=== PATIENT | female | born 2000 | race Caucasian/White ===

== ENCOUNTER 2020-06-06 05:43 | Outpatient (CLI) | payer OTHER ==
[~2020-06-06] VITALS: Ht 160 cm; Wt 86.3 kg
[~2020-06-06 05:43] MED LIST: ACHD5005 PO; ALBU8.5H2 IH; CEPH500C PO; DOCU100C37 PO; FERR325T18 PO; HYDR-3456 PO; HYDR1TAB PO; IBUP-1773 PO; bcp
== END 2020-06-06 14:31 ==
LOC: PREOP 05:43
PROVIDERS: ATTEND Obstetrics & Gynecology
DX: Z01.818 Encounter for other preprocedural examination (principal)

== ENCOUNTER 2020-06-08 11:24 | Day surgery (SDC) | payer OTHER ==
[~2020-06-08] VITALS: Ht 160 cm; Wt 86.3 kg
[2020-06-08] VITALS (10 sets, daily range): BP systolic 93–131; BP diastolic 50–86
[2020-06-08] MEDS ORDERED: LACTATED RINGERS 1,000 ML IV PRN (11:58)
[2020-06-08] MEDS ORDERED: ONDANSETRON 4 MG/2 ML (SDV) Z0FRAN ONE (11:58)
[2020-06-08] MEDS ORDERED: LIDOCAINE PF 2% 5 ML (XYLOCAINE) VIAL ONE (11:58)
[2020-06-08] MEDS ORDERED: proPOfol 200 MG/20 ML (DIPRIVAN) VIAL IV ONE (11:58)
[2020-06-08] MEDS ORDERED: MIDAZOLAM 2 MG/2 ML (VERSED) VIAL ONE (11:58)
[2020-06-08] MEDS ORDERED: fentaNYL INJECTION 100 MCG/2 ML AMP ONE (11:59)
[2020-06-08] MEDS ORDERED: SEVOFLURANE (ULTANE) 15 ML INHAL SOLN ONE ×3 (12:03→13:37)
[2020-06-08 12:09] LABS: BASOPHILS % (AUTO) 0 % (0-10); EOSINOPHILS # (AUTO) 0.1 10^3/uL (0.0-0.3); EOSINOPHILS % (AUTO) 2 % (0-10); HEMATOCRIT 39 % (35-52); HEMOGLOBIN 12.8 G/DL (11.5-16.0); LYMPHOCYTES # (AUTO) 2.1 X 10^3 (1.0-4.0); LYMPHOCYTES % (AUTO) 24 % (12-44); MEAN CORPUSCULAR HEMOGLOBIN 31 PG (25-34); MEAN CORPUSCULAR HGB CONC 33 G/DL (32-36); MEAN CORPUSCULAR VOLUME 93 FL (80-99); MEAN PLATELET VOLUME 8.8 FL (7.4-10.4); MONOCYTES # (AUTO) 0.7 X 10^3 (0.0-1.0); MONOCYTES % (AUTO) 8 % (0-12); NEUTROPHILS # (AUTO) 5.9 X 10^3 (1.8-7.8); NEUTROPHILS % (AUTO) 67 % (42-75); PLATELET COUNT 270 10^3/uL (130-400); WHITE BLOOD COUNT 8.9 10^3/uL (4.3-11.0)
--- NOTE | 2020-06-08 13:33 | Progress Note-Pre Operative ---
Pre-Operative Progress Note H&P Reviewed The H&P was reviewed, patient examined and no changes noted. Date Seen by Provider: Jun 08, 2020 Time Seen by Provider: 13:33 Date H&P Reviewed: Jun 08, 2020 Time H&P Reviewed: 13:33 Pre-Operative Diagnosis: lOST IUD / NO IUD CALLYS ZOILA KENDRICK MD Jun 08, 2020 13:33
[2020-06-08] MEDS ORDERED: D5 LR IV SOLUTION 1,000 ML IV SCH (13:34)
--- NOTE | 2020-06-08 13:34 | Progress Note-Post Operative ---
Post-Operative Progess Note Surgeon (s)/Leather Piece Inspector (s) Surgeon ZOILA KENDRICK MD Leather Piece Inspector: NONE Pre-Operative Diagnosis lOST IUD / NO IUD STRINGS Post-Operative Diagnosis SAME Procedure & Operative Findings Date of Procedure 06/08/20 Procedure Performed/Findings HYSTEROSCOPIC FOREIGN BODY REMOVAL Anesthesia Type GETA Estimated Blood Loss Estimated blood loss (mL): MIN Specimens/Packing Specimens Removed IUD - MIRENA INTACT - AND FIBROUS TISSUE Packing: NONE ZOILA KENDRICK MD Jun 08, 2020 13:34
--- NOTE | 2020-06-08 13:36 | Discharge Inst-Surgical ---
Discharge Inst-Surgical Depart Medication/Instructions New, Converted or Re-Newed RX: Other Consults/Follow Up Patient Instructions: DIRECTED Orders & Referrals Follow Up Appt: Call to make follow up appt. for patient in 2 weeks. Activity: Rest for 24 hours, than as tolerated. DIET: As tolerated shower or tub bathe as desired. (no tampons, douching, or intercoarse) for 2 weeks. Patient to return to the clinic as soon as possible for: Temperature greater than 101F, Severe Pain, Foul discharge from incision or vagina, Excessive Bleeding (more than a period). Activity Activity as Tolerated: No Diet Discharge Diet: No Restrictions ZOILA KENDRICK MD Jun 08, 2020 13:36
[2020-06-08] MEDS ORDERED: HYDROcodone/APAP 10 MG/325 MG (LORTAB) TAB PO PRN (13:45)
[2020-06-08] MEDS ORDERED: ONDANSETRON 4 MG/2 ML (SDV) Z0FRAN IVP PRN ×2 (13:45→14:15)
[2020-06-08] MEDS ORDERED: KETOROLAC 30 MG/ML VIAL IVP ONE (13:45)
[2020-06-08] MEDS ORDERED: MEPERIDINE (DEMEROL) INJ 100 MG/ML IM ONE (13:45)
[2020-06-08] MEDS ORDERED: PROMETHAZINE INJ 25 MG/ML (PHENERGAN) AMP IM ONE (13:45)
[2020-06-08] MEDS ORDERED: KETOROLAC 30 MG/ML VIAL ONE (13:53)
[2020-06-08] MEDS ORDERED: PROMETHAZINE INJ 25 MG/ML (PHENERGAN) AMP IVP ONE (14:15)
[2020-06-08] MEDS ORDERED: morphine INJ 10 MG/ML 1ML (SYR OR VIAL) IVP ONE (14:15)
[2020-06-08] MEDS ORDERED: MEPERIDINE (DEMEROL) INJ 50 MG/ML IVP ONE (14:15)
[2020-06-08] MEDS ORDERED: HYDROmorphone 2 MG/ML VIAL (DILAUDID) IV ONE (14:15)
--- NOTE | 2020-06-08 14:22 | Anesthesia-General Post-Op ---
General Patient Condition Mental Status/LOC: Same as Preop Cardiovascular: Satisfactory Nausea/Vomiting: Absent Respiratory: Satisfactory Pain: Controlled Complications: Absent Post Op Complications Complications None Follow Up Care/Instructions Patient Instructions None needed. Anesthesia/Patient Condition Patient Condition Patient is doing well, no complaints, stable vital signs, no apparent adverse anesthesia problems. No complications reported per nursing. RICK HER ORGANIC EXTRACTIONS TECHNICIAN Jun 08, 2020 14:22
[2020-06-08] MEDS ORDERED: diphenhydrAMINE 50 MG/ML INJ (BENADRYL) ONE (14:39)
[2020-06-08] MEDS ORDERED: diphenhydrAMINE 50 MG/ML INJ (BENADRYL) IVP ONE (14:45)
[2020-06-08] MEDS ORDERED: IBUPROFEN TABLET 200 MG TAB PO ONE ×2 (15:36→15:45)
--- NOTE | 2020-06-09 01:09 | OPERATIVE REPORT ---
DATE OF SERVICE: 06/08/2020 PREOPERATIVE DIAGNOSIS: Retained intrauterine device with no strings/foreign body in uterus. POSTOPERATIVE DIAGNOSIS: Retained intrauterine device with no strings/foreign body in uterus. OPERATIVE PROCEDURE: Hysteroscopic removal of intrauterine foreign body/IUD. OPERATIVE DESCRIPTION: With the patient in supine position under satisfactory general anesthesia, she was repositioned in the dorsal lithotomy position in the Zafar stirrups and prepped and draped in the usual fashion for vaginal surgery. Weighted speculum placed in posterior fornix of vagina, cervix exposed and grasped anteriorly with single tooth tenaculum. Uterus was sounded to 11 cm with uterine sound. The cervix was then serially dilated with Israel dilators to accommodate a hysteroscope, which was introduced using LR as a distending medium, the endometrial cavity was examined. There was an IUD present with no obvious strings. IUD appeared to be overgrown with fibrous tissue. The IUD was grasped with a biopsy forceps through the scope and then the IUD was removed by extracting the scope. This took two attempts with the IUD was removed intact. There were short string still attached that were completely retracted up inside the uterus. They actually were not evident until the IUD was removed. With the IUD removed, the hysteroscope was left out. The tenaculum was removed from the cervix. There was no bleeding from the puncture sites. There was no bleeding from the cervical os. The procedure at this point was complete and terminated. The operative instruments were all accounted for. Sponge and needle counts were correct. Blood loss was minimal. The patient tolerated the procedure well and was uneventfully awakened from her general anesthesia and transferred to recovery room in stable condition with plans for discharge home PAR. Job ID: [id number] DocumentID: [id number] Dictated Date: 06/08/2020 14:01:53 Area Loss Prevention Manager Date: 06/08/2020 23:02:56 Dictated By: ZOILA KENDRICK MD
== END 2020-06-08 15:55 | disposition home or self-care (01) ==
LOC: SDC 11:24
PROVIDERS: ATTEND Obstetrics & Gynecology
DX: Z30.432 Encounter for removal of intrauterine contraceptive device (principal); J45.909 Unspecified asthma, uncomplicated; D64.9 Anemia, unspecified; F17.210 Nicotine dependence, cigarettes, uncomplicated; Z79.899 Other long term (current) drug therapy; Z88.0 Allergy status to penicillin; Z88.1 Allergy status to other antibiotic agents; Z88.5 Allergy status to narcotic agent; Z80.1 Family history of malignant neoplasm of trachea, bronchus and lung; Z82.3 Family history of stroke; Z82.49 Family history of ischemic heart disease and other diseases of the circulatory system
CPT/HCPCS: 36415; 84703; 85025; 87081

== ENCOUNTER 2021-04-24 13:44 | Outpatient (CLI) | payer OTHER ==
[2021-04-24] MEDS ORDERED: ONDANSETRON 4 MG/2 ML (SDV) Z0FRAN IVP ONE (14:00)
[2021-04-24] MEDS ORDERED: D5 LR IV SOLUTION 1,000 ML IV ONE (14:00)
[2021-04-24 14:11] LABS: BASOPHILS % (AUTO) 0 % (0-10); EOSINOPHILS % (AUTO) 0 % (0-10); HEMATOCRIT 35 % (35-52); HEMOGLOBIN 11.7 g/dL (11.5-16.0); LYMPHOCYTES # (AUTO) 1.2 10^3/uL (1.0-4.0); LYMPHOCYTES % (AUTO) 16 % (12-44); MEAN CORPUSCULAR HEMOGLOBIN 32 pg (25-34); MEAN CORPUSCULAR HGB CONC 34 g/dL (32-36); MEAN CORPUSCULAR VOLUME 95 fL (80-99); MEAN PLATELET VOLUME 8.8 fL (9.0-12.2); MONOCYTES # (AUTO) 0.4 10^3/uL (0.0-1.0); MONOCYTES % (AUTO) 5 % (0-12); NEUTROPHILS # (AUTO) 6.3 10^3/uL (1.8-7.8); NEUTROPHILS % (AUTO) 79 % (42-75); PLATELET COUNT 210 10^3/uL (130-400)
[2021-04-24 14:17] VITALS: BP 120/75
[2021-04-24] MEDS ORDERED: PNV1TABL9 PO (14:20)
[2021-04-24 14:30] LABS: ALBUMIN 3.6 GM/DL (3.2-4.5); BILIRUBIN,TOTAL 0.6 MG/DL (0.1-1.0); CALCIUM 8.7 MG/DL (8.5-10.1); CREATININE SERUM 0.6 MG/DL (0.60-1.30); POTASSIUM 4.1 MMOL/L (3.6-5.0); TOTAL PROTEIN 6.5 GM/DL (6.4-8.2)
[2021-04-24 15:04] LABS: BILIRUBIN,URINE NEGATIVE (NEGATIVE); CLARITY,URINE CLEAR; COLOR,URINE YELLOW; GLUCOSE, URINE (UA) NEGATIVE (NEGATIVE); KETONES,URINE 1+ (NEGATIVE); LEUKOCYTE ESTERASE ,URINE 2+ (NEGATIVE); NITRITE,URINE NEGATIVE (NEGATIVE); PROTEIN,URINE NEGATIVE (NEGATIVE)
[2021-04-24 15:29] LABS: BACTERIA,URINE TRACE /HPF
[2021-04-24 16:51] VITALS: BP 105/56
--- NOTE | 2021-04-25 08:49 | Physician Query-Final Dx ---
YING MARVIN 04/25/21 0849: Clinic Account Progress/Dx Physician Query: Please give diagnosis Please include # weeks gestation Date of Service Apr 24, 2021 at 13:44 ZOILA KENDRICK MD 04/26/21 1241: Clinic Account Progress/Dx DIAGNOSIS: Diagnosis 14 weeks gestation with hyperemesis gravidarum YING MARVIN Apr 25, 2021 08:49 ZOILA KENDRICK MD Apr 26, 2021 12:41
== END 2021-04-24 17:45 | disposition home or self-care (01) ==
LOC: WSo 13:44 → LDRP 13:49 → WSo 17:45
PROVIDERS: ATTEND Obstetrics & Gynecology
DX: Z34.92 Encounter for supervision of normal pregnancy, unspecified, second trimester (principal); Z3A.00 Weeks of gestation of pregnancy not specified
CPT/HCPCS: 80053; 81000; 85025; 87088; 96361; 96374; G0463; 36415; 99212

== ENCOUNTER 2021-05-31 15:05 | Outpatient (CLI) | payer OTHER ==
[2021-05-31] VITALS (7 sets, daily range): BP systolic 98–118; BP diastolic 56–65
[~2021-05-31] VITALS: Ht 160 cm; Wt 83.5 kg
[~2021-05-31 15:05] MED LIST changes: +PNV1TABL9 PO
[2021-05-31 15:51] LABS: BASOPHILS % (AUTO) 1 % (0-10); EOSINOPHILS # (AUTO) 0.1 10^3/uL (0.0-0.3); EOSINOPHILS % (AUTO) 1 % (0-10); HEMATOCRIT 31 % (35-52); HEMOGLOBIN 10.3 g/dL (11.5-16.0); LYMPHOCYTES # (AUTO) 1.1 10^3/uL (1.0-4.0); LYMPHOCYTES % (AUTO) 20 % (12-44); MEAN CORPUSCULAR HEMOGLOBIN 32 pg (25-34); MEAN CORPUSCULAR HGB CONC 34 g/dL (32-36); MEAN CORPUSCULAR VOLUME 95 fL (80-99); MONOCYTES # (AUTO) 0.7 10^3/uL (0.0-1.0); MONOCYTES % (AUTO) 12 % (0-12); NEUTROPHILS # (AUTO) 3.8 10^3/uL (1.8-7.8); NEUTROPHILS % (AUTO) 66 % (42-75); PLATELET COUNT 193 10^3/uL (130-400); WHITE BLOOD COUNT 5.7 10^3/uL (4.3-11.0)
[2021-05-31 15:52] LABS: BILIRUBIN,URINE NEGATIVE (NEGATIVE); CLARITY,URINE CLEAR; COLOR,URINE YELLOW; GLUCOSE, URINE (UA) NEGATIVE (NEGATIVE); KETONES,URINE 3+ (NEGATIVE); LEUKOCYTE ESTERASE ,URINE 1+ (NEGATIVE); NITRITE,URINE NEGATIVE (NEGATIVE); PH,URINE 6.5 (5-9); PROTEIN,URINE NEGATIVE (NEGATIVE)
[2021-05-31 16:00] LABS: RBC,URINE RARE /HPF
[2021-05-31 16:01] LABS: BACTERIA,URINE TRACE /HPF
--- NOTE | 2021-06-03 10:03 | Physician Query-Final Dx ---
Clinic Account Progress/Dx Physician Query: Please give diagnosis Please include # weeks gestation Date of Service May 31, 2021 at 15:05 YING MARVIN Jun 03, 2021 10:03
== END 2021-05-31 16:30 | disposition home or self-care (01) ==
LOC: WSo 15:05 → LDRP 15:06 → WSo 16:30
PROVIDERS: ATTEND Obstetrics & Gynecology
DX: O26.52 Maternal hypotension syndrome, second trimester (principal); O99.412 Diseases of the circulatory system complicating pregnancy, second trimester; Z3A.20 20 weeks gestation of pregnancy
CPT/HCPCS: 81000; 85025; G0463; 36415; 99212

== ENCOUNTER 2021-09-18 08:20 | Outpatient (CLI) | payer OTHER, MEDICAID ==
[~2021-09-18] VITALS: Ht 160 cm; Wt 87.3 kg
[2021-09-18 08:46] VITALS: BP 110/62
[2021-09-18 08:54] VITALS: BP 110/62
[2021-09-18 09:05] LABS: CLARITY,URINE CLEAR; COLOR,URINE YELLOW; GLUCOSE, URINE (UA) NEGATIVE (NEGATIVE); KETONES,URINE 1+ (NEGATIVE); LEUKOCYTE ESTERASE ,URINE 2+ (NEGATIVE); NITRITE,URINE NEGATIVE (NEGATIVE); PROTEIN,URINE 1+ (NEGATIVE)
[2021-09-18 09:19] LABS: BACTERIA,URINE FEW /HPF; BILIRUBIN,URINE 1+ (NEGATIVE)
[2021-09-18] MEDS ORDERED: CEPH250C PO (10:10)
[2021-09-18 10:20] VITALS: BP 110/62
--- NOTE | 2021-09-19 08:33 | Physician Query-Final Dx ---
Clinic Account Progress/Dx Physician Query: Please give diagnosis Please include # weeks gestation Date of Service Sep 18, 2021 at 08:20 SHAVONNE,OctSep 19, 2021 08:33
== END 2021-09-18 10:20 | disposition home or self-care (01) ==
LOC: WSo 08:20 → LDRP 08:20 → WSo 10:20
PROVIDERS: ATTEND Family Medicine
DX: Z34.93 Encounter for supervision of normal pregnancy, unspecified, third trimester (principal); Z3A.37 37 weeks gestation of pregnancy
CPT/HCPCS: 81000; 87088

== ENCOUNTER 2021-09-20 08:43 | Outpatient (CLI) | payer OTHER, MEDICAID ==
[~2021-09-20] VITALS: Ht 160 cm; Wt 86.9 kg
[~2021-09-20 08:43] MED LIST changes: +CEPH250C PO
[2021-09-20 09:39] LABS: CLARITY,URINE CLEAR; COLOR,URINE ORANGE; GLUCOSE, URINE (UA) TRACE (NEGATIVE); KETONES,URINE 3+ (NEGATIVE); LEUKOCYTE ESTERASE ,URINE 2+ (NEGATIVE); NITRITE,URINE NEGATIVE (NEGATIVE); PROTEIN,URINE 1+ (NEGATIVE)
[2021-09-20 10:28] LABS: BILIRUBIN,URINE 2+ (NEGATIVE)
[2021-09-20 10:29] LABS: BACTERIA,URINE TRACE /HPF; RBC,URINE 0-2 /HPF
[2021-09-20] MEDS ORDERED: D5 LR IV SOLUTION 1,000 ML IV SCH (10:45)
[2021-09-20 10:55] LABS: BASOPHILS % (AUTO) 0 % (0-10); EOSINOPHILS % (AUTO) 0 % (0-10); HEMATOCRIT 28 % (35-52); HEMOGLOBIN 9.3 g/dL (11.5-16.0); LYMPHOCYTES # (AUTO) 1.1 10^3/uL (1.0-4.0); LYMPHOCYTES % (AUTO) 17 % (12-44); MEAN CORPUSCULAR HEMOGLOBIN 30 pg (25-34); MEAN CORPUSCULAR HGB CONC 33 g/dL (32-36); MEAN CORPUSCULAR VOLUME 92 fL (80-99); MEAN PLATELET VOLUME 8.9 fL (9.0-12.2); MONOCYTES # (AUTO) 0.9 10^3/uL (0.0-1.0); MONOCYTES % (AUTO) 14 % (0-12); NEUTROPHILS # (AUTO) 4.5 10^3/uL (1.8-7.8); NEUTROPHILS % (AUTO) 68 % (42-75); PLATELET COUNT 161 10^3/uL (130-400); WHITE BLOOD COUNT 6.5 10^3/uL (4.3-11.0)
[2021-09-20 11:02] VITALS: BP 109/62
[2021-09-20 11:15] LABS: ANISOCYTOSIS SLIGHT; BAND NEUTROPHILS 0 %; BASOPHILS % (MANUAL) 0 %; EOSINOPHILS % (MANUAL) 0 %; LYMPHOCYTES % (MANUAL) 14 %; MONOCYTES % (MANUAL) 14 %; NEUTROPHILS % (MANUAL) 72 %; POLYCHROMASIA SLIGHT
[2021-09-20 12:00] VITALS: BP 98/62
[2021-09-20] MEDS ORDERED: cefTRIAXone 1 GM PRE-MIX 50 ML IV NR (12:00)
--- NOTE | 2021-09-23 08:05 | Physician Query-Final Dx ---
Clinic Account Progress/Dx Physician Query: Please give diagnosis Please include # weeks gestation Date of Service Sep 20, 2021 at 08:43 SHAVONNE,OctSep 23, 2021 08:05
== END 2021-09-20 14:08 ==
LOC: WSo 08:43 → LDRP 08:44 → WSo 14:08
PROVIDERS: ATTEND Family Medicine
DX: O26.893 Other specified pregnancy related conditions, third trimester (principal); M54.9 Dorsalgia, unspecified; R50.9 Fever, unspecified; Z3A.37 37 weeks gestation of pregnancy
CPT/HCPCS: 81000; 85007; 85027; 87077; 87088; 96361; 96374; G0463; 36415; 99213

== ENCOUNTER 2021-10-10 05:49 | Inpatient (IN) | payer OTHER, MEDICAID ==
[2021-10-10] VITALS (46 sets, daily range): BP systolic 91–175; BP diastolic 51–88
[~2021-10-10] VITALS: Ht 160 cm; Wt 86.4 kg
--- NOTE | 2021-10-10 06:40 | History & Physical-OB ---
OB - Chief Complaint & HPI Date/Time Date of Admission: Date of Admission: Oct 10, 2021 at 05:49 Date seen by a Provider: Oct 10, 2021 Time Seen by a Provider: 06:30 Chief Complaint/History OB-Reason for Admission/Chief: Induction of Labor Hx : 2 Hx Para: 1 Expected Date of Delivery: Oct 17, 2021 Gestational Age in Weeks: 39 Gestational Age in Days: 0 Admission Nurse Assessment Rev: Yes History of Labs GBS negative Allergies and Home Medications Allergies Coded Allergies: amoxicillin (Unverified Allergy, Severe, ANAPHYLAXIS, 06/06/20) morphine (Unverified Allergy, Mild, ITCHING AND REDNESS., 06/08/20) SEE NURSES NOTES. Patient Home Medication List Home Medication List Reviewed: Yes Cephalexin (Cephalexin) 250 Mg Capsule, 250 MG PO TID Prescribed by: CHANTELLE DUNAWAY on 09/18/21 1010 OB - History Hx of Present Care: Yes Ultrasounds: Normal mid trimester US Obstetrical Complications: None Medical Complications: None Delivery History Hx Blood Disorders: No Adverse Rxn to Tranfusion: No (HAS HAD BLOOD WITH NO REACTION) Patient Past Medical History no chronic medical problems Social History/Family History 2nd Hand Smoke Exposure: Yes Immunizations Hepatitis A: No Hepatitis B: No Tetanus Booster (TDap): Less than 5yrs OB - Admission Exam Physical Exam HEENT: Moist Membranes Heart: Rhythm Normal Lungs: Clear Extremities: Normal Cervical Dilatation: 2cm Effacement: 50% Station: -3 Membranes: Intact Heart Rate: 130's Accelerations: Accelerations Present Short Term Variability: Present Contractions on Admission: None Intensity: Mild Nix Scoring Tool (Modified) Dilation (cm): 1-2cm (1) Effacement (%): 31-51% (1) Descent/Station: -3 (0) Cervix Consistency: Medium(1) Cervix Position: Middle/Mid-Position (1) Add 1 point for: Each previous vaginal delivery (1) Nix Score: 5 OB - Assessment/Plan/Diagnosis Assessment Assessment: induction of labor (at term 39 weeks.) Admission Dx 1. IUP at term 39 weeks. Admission Status: Inpatient Order (span 2 midnights) Reason for Inpatient Admission: L&D Plan Plan: Induction Induction Method: AROM Other Plan -epidural planned. -pitocin as needed DELVIS FERRER MD Oct 10, 2021 06:40
[2021-10-10] MEDS ORDERED: D5 LR IV SOLUTION 1,000 ML IV SCH (06:45)
[2021-10-10] MEDS ORDERED: OXYTOCIN PRE-MIX DRIP 500 ML IV SCH ×2 (06:45→12:45)
[2021-10-10 07:36] LABS: BASOPHILS % (AUTO) 0 % (0-10); EOSINOPHILS % (AUTO) 0 % (0-10); HEMATOCRIT 30 % (35-52); HEMOGLOBIN 9.6 g/dL (11.5-16.0); LYMPHOCYTES # (AUTO) 1.4 10^3/uL (1.0-4.0); LYMPHOCYTES % (AUTO) 23 % (12-44); MEAN CORPUSCULAR HEMOGLOBIN 30 pg (25-34); MEAN CORPUSCULAR HGB CONC 32 g/dL (32-36); MEAN CORPUSCULAR VOLUME 93 fL (80-99); MEAN PLATELET VOLUME 9.1 fL (9.0-12.2); MONOCYTES # (AUTO) 0.7 10^3/uL (0.0-1.0); MONOCYTES % (AUTO) 11 % (0-12); NEUTROPHILS % (AUTO) 65 % (42-75); PLATELET COUNT 183 10^3/uL (130-400); WHITE BLOOD COUNT 6.2 10^3/uL (4.3-11.0)
[2021-10-10] MEDS ORDERED: fentaNYL 2 mcg/ml BUPIVA 0.125 100 ML ONE (09:39)
[2021-10-10] MEDS ORDERED: BUPIVACAINE 0.25% 30 ML (SENSORCAINE) VIAL ONE (10:08)
[2021-10-10] MEDS ORDERED: fentaNYL INJ 100 MCG/2 ML AMP ONE (10:08)
[2021-10-10] MEDS ORDERED: ONDANSETRON 4 MG/2 ML (SDV) Z0FRAN IV PRN (11:00)
[2021-10-10] MEDS ORDERED: NALOXONE 0.4 MG/ML 1 ML (NARCAN) VIAL IV PRN ×3 (11:00→12:45)
[2021-10-10] MEDS ORDERED: EPIDURAL (fentaNYL 2 MCG/ML BUPIVA 0.125%)100 ML BAG EPI PRN (11:00)
[2021-10-10] MEDS ORDERED: LACTATED RINGERS 1,000 ML IV SCH (11:00)
[2021-10-10] MEDS ORDERED: METOCLOPRAMIDE INJ 10 MG/2 ML (REGLAN) IV PRN (11:00)
[2021-10-10] MEDS ORDERED: diphenhydrAMINE 50 MG/ML INJ (BENADRYL) IV PRN (11:00)
[2021-10-10] MEDS ORDERED: MEASLES,MUMPS,RUBELLA 1 EA INJ SQ ONE (12:45)
[2021-10-10] MEDS ORDERED: BENZOCAINE/MENTHOL (DERMOPLAST) 56 ML CAN TP PRN (12:45)
[2021-10-10] MEDS ORDERED: TETANUS,DIPTH,PERTUSS P/F (BOOSTRIX) 0.5 ML VIAL IM ONE (12:45)
[2021-10-10] MEDS ORDERED: WITCH HAZEL(TUCKS) 40 EA JAR TOP PRN (12:45)
--- NOTE | 2021-10-10 12:49 | OB Labor & Delivery Record ---
L&D History Date of Service Date of Service: Oct 10, 2021 History Expected Date of Delivery: Oct 17, 2021 Gestational Age in Weeks: 39 Hx : 2 Hx Para: 2 Complications Events: Routine care Operative Indications (Cesarea: N/A-Vaginal Delivery Intrapartal Events: None L&D Stage1 Stage One Onset of Labor - Date: Oct 10, 2021 Onset of Labor - Time: 07:25 Monitors and Tracing Monitor Mode: Internal Heart Rate: 140 Monitor Accelerations: Uniform Monitor Decelerations: None Film Masker Variability: Average (6-10) Short Term Variability: Present Presentation: Vertex Signs of Distress by FHT Signs of Distress no Rupture of Membranes Spontaneous Ruture of Membrane: No Amniotic Membrane Rupture Time: 25 Amniotic Membrane Fluid Desc.: Clear Induction/Anesthesia Epidural Cath Placement - Time: 1027 L&D Stage2 Stage Two Stage II Date: Oct 10, 2021 Stage II Time: 12:09 Monitors and Tracing Monitor Mode: Internal Heart Rate: 140 Monitor Accelerations: Uniform Monitor Decelerations: None Fpc Variability: Average (6-10) Short Term Variability: Present Position: Right Occiput Anterior Presentation: Vertex Signs of Distress by FHT Signs of Distress no Cord Descript/Complications Cord Vessel Description: 3 Vessels Delivery Type Infant Delivery Method: Spontaneous Vaginal Anterior Shoulder: Right Episiotomy/Perineal Laceration Laceraction(s)/Extensions: No Episiotomy Description: Perineal Extension/lac (minor) Sutures Used: Dexon (1 stitch) Condition of Infant Delivery 1 minute Comment: 8 5 minute Comment: 8 Condition of Infant Condition of Infant: Living Exam: No Observed Abnormalities Resuscitation Resuscitation: N/A - Spontaneous Resp L&D Stage3 Stage Three Stage III Date: Oct 10, 2021 Stage III Time: 12:19 Pictocin Pitocin Administration mu/min: 4 Pitocin ml/hr: 4 Pitocin Administration Comment: 0842 PITOCIN INCREASED PER PROTOCOL. 0843 MONITOR PAPER CHANGED. Placenta Delivery Placenta Delivery: Spontaneous Delivery Summary Summary Estimated blood loss (mL): 150 Condition of Delivery Examined: Cervix Examined Post Hemorrhage: No Intervention Required none DELVIS FERRER MD Oct 10, 2021 12:49
[2021-10-10] MEDS ORDERED: CATHETER FLUSH 10 ML SYR IV SCH ×2 (14:00)
[2021-10-10] MEDS ORDERED: ACETAMINOPHEN 500 MG TAB (TYLENOL) ONE (15:28)
[2021-10-10] MEDS ORDERED: IBUPROFEN 600 MG (MOTRIN) TAB PO ONE (15:29)
[2021-10-10] MEDS: ACETAMINOPHEN 500 MG TAB (TYLENOL) PO SCH (15:30)
[2021-10-10] MEDS: IBUPROFEN 600 MG (MOTRIN) TAB PO SCH ×2 (15:31→20:40)
[2021-10-10] MEDS: DOCUSATE SODIUM 100 MG (COLACE) CAP PO SCH (20:40)
[2021-10-11 00:58] VITALS: BP 100/63
[2021-10-11] MEDS: ACETAMINOPHEN 500 MG TAB (TYLENOL) PO SCH ×3 (00:58→13:09)
[2021-10-11 04:00] VITALS: BP 102/72
[2021-10-11] MEDS: IBUPROFEN 600 MG (MOTRIN) TAB PO SCH ×2 (04:00→10:07)
[2021-10-11 05:33] LABS: BASOPHILS % (AUTO) 1 % (0-10); EOSINOPHILS % (AUTO) 1 % (0-10); HEMATOCRIT 29 % (35-52); LYMPHOCYTES # (AUTO) 1.1 10^3/uL (1.0-4.0); LYMPHOCYTES % (AUTO) 24 % (12-44); MEAN CORPUSCULAR HEMOGLOBIN 30 pg (25-34); MEAN CORPUSCULAR HGB CONC 32 g/dL (32-36); MEAN CORPUSCULAR VOLUME 95 fL (80-99); MEAN PLATELET VOLUME 9.1 fL (9.0-12.2); MONOCYTES # (AUTO) 0.6 10^3/uL (0.0-1.0); MONOCYTES % (AUTO) 13 % (0-12); NEUTROPHILS # (AUTO) 2.7 10^3/uL (1.8-7.8); NEUTROPHILS % (AUTO) 61 % (42-75); PLATELET COUNT 128 10^3/uL (130-400); WHITE BLOOD COUNT 4.4 10^3/uL (4.3-11.0)
[2021-10-11] MEDS ORDERED: PRENATAL VITAMIN 1 EA TAB PO SCH (07:00)
--- NOTE | 2021-10-11 07:05 | Discharge Summary ---
Diagnosis/Chief Complaint Date of Admission Oct 10, 2021 at 05:49 Date of Discharge October 11, 2021 Discharge Date: Oct 11, 2021 Discharge Time: 14:00 Admission Diagnosis Admission Diagnosis 1. Intrauterine at 39 weeks Discharge Diagnosis 1. Intrauterine at 39 weeks 2. Anemia due to Reason Hospital Visit 21-year-old female 2 now term 2 who presented to labor and delivery in the morning of October 10, 2021 for induction of labor. She was at 39 weeks gestation and had uncomplicated care. Her EDC was noted to be October 17, 2021. GBS status at 36 weeks was noted to be negative. Discharge Summary-OBS Procedures 1. Epidural per anesthesia 2. Spontaneous vaginal delivery 3. Repair of minor perineal laceration Discharge Physical Examination Allergies: Coded Allergies: amoxicillin (Unverified Allergy, Severe, ANAPHYLAXIS, 06/06/20) morphine (Unverified Allergy, Mild, ITCHING AND REDNESS., 06/08/20) SEE NURSES NOTES. Vitals & I&Os Vital Signs Date Time Temp Pulse Resp B/P (MAP) Pulse Ox O2 Delivery O2 Flow Rate FiO2 10/11/21 04:00 36.0 80 18 102/72 (82) Room Air 10/11/21 00:58 97 General Appearance: Alert, No Acute Distress Respiratory: Clear to Auscultation Cardiovascular: Regular Rate Abdominal: Soft (with uterus firm) Neuro: Normal Speech Hospital Course Was the Problem List Reviewed?: Yes following admission in the morning of October 10, 2021 she underwent routine antepartum care orders. She did receive epidural per anesthesia and had excellent pain relief. She ultimately went on to completion and delivered over a minor perineal laceration and a term viable female. Delivery was accomplished at 1209 on October 10, 2021. He received Apgars of 8 at 1 minute and 8 at 5 minutes. Following delivery she underwent routine care orders. She had no complications during the remainder of hospital stay. She tolerated regular diet. She was ambulatory and did not complain of shortness of breath or leg pain. Her hemoglobin in the morning of October 11 was 9.0 and this was compared to admission of 9.6. She was ready for dismissal during the afternoon of October 11, 2021. She will follow-up with Dr. Ferrer in 6 weeks. Pending Labs Laboratory Tests 10/11/21 05:23: White Blood Count 4.4, Red Blood Count 3.00, Hemoglobin 9.0, Hematocrit 29, Mean Corpuscular Volume 95, Mean Corpuscular Hemoglobin 30, Mean Corpuscular Hemoglobin Concent 32, Red Cell Distribution Width 17.2, Platelet Count 128, Mean Platelet Volume 9.1, Immature Granulocyte % (Auto) 1, Neutrophils (%) (Auto) 61, Lymphocytes (%) (Auto) 24, Monocytes (%) (Auto) 13, Eosinophils (%) (Auto) 1, Basophils (%) (Auto) 1, Neutrophils # (Auto) 2.7, Lymphocytes # (Auto) 1.1, Monocytes # (Auto) 0.6, Eosinophils # (Auto) 0.0, Basophils # (Auto) 0.0, Immature Granulocyte # (Auto) 0.0 Discharge Instructions to patient/family Please see electronic discharge instructions given to patient. Discharge Medications Reviewed and agree with Discharge Medication list on patient's Discharge Instruction sheet DELVIS FERRER MD Oct 11, 2021 07:05
[2021-10-11] MEDS ORDERED: IBUP-844 PO (07:07)
--- NOTE | 2021-10-11 07:07 | Discharge Inst-Women's Service ---
Discharge Inst-Women's Serv Depart Medication/Instructions New, Converted or Re-Newed RX: Transmitted to Pharmacy ([facility]) Problems Reviewed?: Yes Consults/Follow Up Additional Follow Up: Yes (with Dr. Ferrer in 6 weeks) Activity Driving Instructions: No Driving for 1 Week Nothing Inside Vagina: No [place] (for 6 weeks) Diet Discharge Diet: Regular Diet Return to The Hospital For: as below Symptoms to Report to : Bleeding Excessive, Fever Over 101 Degrees F, Vaginal Discharge Foul For Any Problems or Questions: Contact Your Physician DELVIS FERRER MD Oct 11, 2021 07:07
[2021-10-11] MEDS: DOCUSATE SODIUM 100 MG (COLACE) CAP PO SCH (10:07)
[2021-10-11 10:10] VITALS: BP 115/75
== END 2021-10-11 14:50 | disposition home or self-care (01) | DRG 807 ==
LOC: LDRP 05:49
PROVIDERS: ADMIT Family Medicine; ATTEND Family Medicine
PROC: 10E0XZZ Delivery of Products of Conception, External Approach (ICD-10-PCS; principal; 2021-10-10)
PROC: 10907ZC Drainage of Amniotic Fluid, Therapeutic from Products of Conception, Via Natural or Artificial Opening (ICD-10-PCS; 2021-10-10)
PROC: 3E033VJ Introduction of Other Hormone into Peripheral Vein, Percutaneous Approach (ICD-10-PCS; 2021-10-10)
PROC: 0HQ9XZZ Repair Perineum Skin, External Approach (ICD-10-PCS; 2021-10-10)
DX: O99.02 Anemia complicating childbirth (principal); Z37.0 Single live birth; Z3A.39 39 weeks gestation of pregnancy; D64.9 Anemia, unspecified; O70.0 First degree perineal laceration during delivery
CPT/HCPCS: 36415; 85025; 86850; 86900; 86901

== ENCOUNTER → 2022-08-27 | Outpatient (CLI) | payer OTHER, MEDICAID ==
[~2022-08-27] MED LIST changes: +IBUP-844 PO
== END ==
LOC: LABNPT 12:05
PROVIDERS: ATTEND Obstetrics & Gynecology
DX: R80.9 Proteinuria, unspecified (principal)
CPT/HCPCS: 82570; 84156

== ENCOUNTER 2022-09-24 12:48 | Inpatient (IN) | payer OTHER, MEDICAID ==
[2022-09-24] VITALS (42 sets, daily range): BP systolic 87–128; BP diastolic 47–87
[~2022-09-24] VITALS: Ht 160 cm; Wt 88.2 kg
[2022-09-24] MEDS ORDERED: LIDOCAINE 1% INJ 10 ML VIAL INJ ONE (13:45)
[2022-09-24] MEDS ORDERED: D5 LR IV SOLUTION 1,000 ML IV ONE (13:58)
[2022-09-24 14:47] LABS: BASOPHILS % (AUTO) 0 % (0-10); EOSINOPHILS % (AUTO) 0 % (0-10); HEMATOCRIT 27 % (35-52); HEMOGLOBIN 8.4 g/dL (11.5-16.0); LYMPHOCYTES # (AUTO) 1.4 10^3/uL (1.0-4.0); LYMPHOCYTES % (AUTO) 15 % (12-44); MEAN CORPUSCULAR HEMOGLOBIN 26 pg (25-34); MEAN CORPUSCULAR HGB CONC 31 g/dL (32-36); MEAN CORPUSCULAR VOLUME 84 fL (80-99); MEAN PLATELET VOLUME 9.2 fL (9.0-12.2); MONOCYTES # (AUTO) 0.7 10^3/uL (0.0-1.0); MONOCYTES % (AUTO) 8 % (0-12); NEUTROPHILS # (AUTO) 7.4 10^3/uL (1.8-7.8); NEUTROPHILS % (AUTO) 77 % (42-75); PLATELET COUNT 238 10^3/uL (130-400); WHITE BLOOD COUNT 9.7 10^3/uL (4.3-11.0)
[2022-09-24] MEDS ORDERED: fentaNYL 2 mcg/ml BUPIVA 0.125 100 ML ONE (14:54)
[2022-09-24] MEDS: D5 LR IV SOLUTION 1,000 ML IV SCH ×2 (14:57→20:42)
[2022-09-24] MEDS ORDERED: fentaNYL 2 mcg/ml BUPIVA 0.125 100 ML EPI SCH (16:15)
[2022-09-24] MEDS ORDERED: METOCLOPRAMIDE INJ 10 MG/2 ML (REGLAN) IV PRN (16:15)
[2022-09-24] MEDS ORDERED: LACTATED RINGERS 1,000 ML IV SCH (16:15)
[2022-09-24] MEDS ORDERED: NALOXONE 0.4 MG/ML 1 ML (NARCAN) VIAL IV PRN ×2 (16:15)
[2022-09-24] MEDS ORDERED: diphenhydrAMINE 50 MG/ML INJ (BENADRYL) IV PRN (16:15)
[2022-09-24] MEDS ORDERED: ONDANSETRON 4 MG/2 ML (SDV) Z0FRAN IV PRN (16:15)
[2022-09-24] MEDS ORDERED: OXYTOCIN PRE-MIX DRIP 500 ML IV ONE (19:31)
[2022-09-24] MEDS ORDERED: OXYTOCIN PRE-MIX DRIP 500 ML IV SCH ×2 (19:45→22:15)
--- NOTE | 2022-09-24 20:29 | History & Physical ---
History and Physical Date Seen by Provider: Sep 24, 2022 Time Seen by Provider: 20:26 This patient is a 22-year-old 3 para 2 whose female who presents in labor. She has had regular contractions throughout the day. She was seen in clinic this morning with dilated 2 cm and effaced 50%. She currently is 4 cm +70% -1 station vertex presentation Patient has been uncomplicated. Her GBS culture was negative. She does have a history of rapid labors. Allergies are to amoxicillin and morphine Medications are vitamins Medical social and surgical histories are per the antepartum record HEENT exam is normal Neck is supple no lymphadenopathy no thyromegaly The abdomen is gravid soft nontender nondistended Extremities show no clubbing or cyanosis. There is no Homans' sign. Pelvic exam shows a cervix now 4 cm +70% effaced -1 to -2 station vertex presentation with intact membranes. Amniotomy was performed with release of clear fluid Laboratory Tests Test 09/24/22 14:20 Range/Units White Blood Count 9.7 4.3-11.0 10^3/uL Red Blood Count 3.26 L 3.80-5.11 10^6/uL Hemoglobin 8.4 L 11.5-16.0 g/dL Hematocrit 27 L 35-52 % Mean Corpuscular Volume 84 80-99 fL Mean Corpuscular Hemoglobin 26 25-34 pg Mean Corpuscular Hemoglobin Concent 31 L 32-36 g/dL Red Cell Distribution Width 17.0 H 10.0-14.5 % Platelet Count 238 130-400 10^3/uL Mean Platelet Volume 9.2 9.0-12.2 fL Immature Granulocyte % (Auto) 1 % Neutrophils (%) (Auto) 77 H 42-75 % Lymphocytes (%) (Auto) 15 12-44 % Monocytes (%) (Auto) 8 0-12 % Eosinophils (%) (Auto) 0 0-10 % Basophils (%) (Auto) 0 0-10 % Neutrophils # (Auto) 7.4 1.8-7.8 10^3/uL Lymphocytes # (Auto) 1.4 1.0-4.0 10^3/uL Monocytes # (Auto) 0.7 0.0-1.0 10^3/uL Eosinophils # (Auto) 0.0 0.0-0.3 10^3/uL Basophils # (Auto) 0.0 0.0-0.1 10^3/uL Immature Granulocyte # (Auto) 0.1 0.0-0.1 10^3/uL Assessment and plan Term at 37+ weeks gestation and labor. Patient is somewhat anemic we will supplement with iron after delivery. Patient has a history of rapid labors. Amniotomy has now been performed. We will augment with Pitocin as she is changed from 2 cm this morning to 4 cm currently which represents evidence of labor but slow progress. We do anticipate a vaginal delivery 37 weeks in early labor Allergies and Home Medications Allergies Coded Allergies: amoxicillin (Unverified Allergy, Severe, ANAPHYLAXIS, 06/06/20) morphine (Unverified Allergy, Mild, ITCHING AND REDNESS., 06/08/20) SEE NURSES NOTES. Patient Home Medication List Home Medication List Reviewed: Yes No Active Prescriptions or Reported Meds ZOILA KENDRICK MD Sep 24, 2022 20:28
[2022-09-24] MEDS ORDERED: OXYC-199 PO (20:33)
[2022-09-24] MEDS ORDERED: DOCU-143 PO (20:33)
[2022-09-24] MEDS ORDERED: IBUP-1780 PO (20:33)
--- NOTE | 2022-09-24 20:34 | Discharge Inst-Surgical ---
Discharge Inst-Surgical Depart Medication/Instructions New, Converted or Re-Newed RX: Transmitted to Pharmacy Consults/Follow Up Orders & Referrals Follow Up Appt: Call to make follow up appt. for patient in 4 weeks. Activity Per routine post vaginal delivery instructions. Please call in RX to patient pharmacy. Diet as tolerated Patient may shower or tub bathe as desired. Activity Activity as Tolerated: No Diet Discharge Diet: No Restrictions ZOILA KENDRICK MD Sep 24, 2022 20:34
[2022-09-24] MEDS ORDERED: LIDOCAINE 1% INJ 20 ML VIAL ONE (21:56)
[2022-09-24] MEDS: CATHETER FLUSH 10 ML SYR IV SCH (22:00)
[2022-09-24] MEDS ORDERED: BENZOCAINE/MENTHOL (DERMOPLAST) 56 ML CAN TP PRN (22:15)
[2022-09-24] MEDS: KETOROLAC 30 MG/ML VIAL IV SCH (22:56)
[2022-09-25] MEDS: oxyCODONE/APAP 5/325MG (PERCOCET 5) TABLET PO PRN ×2 (02:06→08:41)
[2022-09-25] MEDS ORDERED: ACETAMINOPHEN 500 MG TAB (TYLENOL) PO ONE (02:15)
[2022-09-25] MEDS: KETOROLAC 30 MG/ML VIAL IV SCH (04:46)
[2022-09-25 04:47] VITALS: BP 114/60
--- NOTE | 2022-09-25 08:19 | Progress Note ---
Standard Progress Note Progress Notes/Assess & Plan Date Seen by a Provider: Sep 25, 2022 Time Seen by a Provider: 08:18 Progress/Assessment & Plan This patient is without complaint. She is ambulating, voiding, tolerating oral intake well and has good pain control. Vital Signs Date Time Temp Pulse Resp B/P (MAP) Pulse Ox O2 Delivery O2 Flow Rate FiO2 09/25/22 04:47 37.5 93 18 114/60 (78) 97 Room Air 09/24/22 23:25 37.0 97 18 119/66 (83) 100 Room Air 09/24/22 23:23 120 118/63 (81) Room Air 09/24/22 23:08 118 118/73 (88) Room Air 09/24/22 22:53 111 106/61 (76) Room Air 09/24/22 22:38 115 111/69 (83) Room Air 09/24/22 22:23 36.8 113 18 122/63 (82) Room Air 09/24/22 22:10 120 110/62 (78) Room Air 09/24/22 21:54 131 113/58 (76) Room Air 09/24/22 21:39 117 105/57 (73) Room Air 09/24/22 21:24 116 127/73 (91) 100 Room Air 09/24/22 21:10 121 126/68 (87) 100 Room Air 09/24/22 20:53 112 18 128/84 (99) 100 Room Air 09/24/22 20:24 114 111/62 (78) Room Air 09/24/22 20:10 124 111/65 (80) 98 Room Air 09/24/22 19:54 112 22 91/56 (68) 99 Room Air 09/24/22 19:38 120 20 95/61 (72) 100 Room Air 09/24/22 19:24 36.0 120 20 88/58 (68) 99 Room Air 09/24/22 19:09 135 95/58 (70) 99 Room Air 09/24/22 19:00 96 18 112/65 (81) 92 Room Air 09/24/22 18:45 122 18 116/68 (84) 100 Room Air 09/24/22 18:30 102 18 109/67 (81) 98 Room Air 09/24/22 18:15 100 18 107/68 (81) 98 Room Air 09/24/22 18:00 113 18 101/59 (73) 98 Room Air 09/24/22 17:45 109 18 113/68 (83) 98 Room Air 09/24/22 17:30 108 18 101/64 (76) 98 Room Air 09/24/22 17:15 97 18 99 Room Air 09/24/22 17:10 108 18 93/54 (67) 100 Room Air 09/24/22 17:00 113 18 100 Room Air 09/24/22 16:55 126 18 89/51 (64) 100 Room Air 09/24/22 16:45 134 18 100 Room Air 09/24/22 16:40 145 18 111/59 (76) 100 Room Air 09/24/22 16:30 134 18 100 Non Rebreather 10.00 09/24/22 16:20 125 18 96/51 (66) 100 Room Air 09/24/22 16:15 125 18 109/59 (76) 100 Room Air 09/24/22 16:11 125 18 110/55 (73) 100 Room Air 09/24/22 16:10 141 18 87/47 (60) 100 Room Air 09/24/22 16:08 143 18 103/58 (73) 100 Room Air 09/24/22 16:05 37.1 108 18 112/59 (76) 100 Room Air 09/24/22 16:00 122 18 98/55 (69) 100 Room Air 09/24/22 15:55 127 18 101/64 (76) 100 Room Air 09/24/22 15:50 131 18 116/70 (85) 100 Room Air 09/24/22 15:45 129 18 116/69 (85) 100 Room Air 09/24/22 15:40 122 18 119/87 (98) 100 Room Air 09/24/22 15:35 109 18 123/79 (94) 100 Room Air 09/24/22 13:02 36.7 111 18 117/66 100 Room Air 09/24/22 12:56 36.7 111 18 100 Room Air I & O 09/25/22 07:00 Intake Total 2155 ml Output Total 950 ml Balance 1205 ml Vital signs are stable. Patient is afebrile. The abdomen is benign. Fundus is firm below the umbilicus and nontender. Extremities show no clubbing or cyanosis. There is no Homans' sign. Assessment and plan day #1 status post term spontaneous vaginal livery doing well. Plans for routine convalescent care ZOILA KENDRICK MD Sep 25, 2022 08:19
[2022-09-25] MEDS: DOCUSATE SODIUM 100 MG (COLACE) CAP PO SCH ×2 (08:41→21:55)
--- NOTE | 2022-09-25 09:13 | Anesthesia-Regional Post-Op ---
Regional Patient Condition Mental Status: Alert, Oriented x3 Circulation: Same as Pre-Op Headache: Absent Sensation: Full Recovery Motor Block: Absent Post Op Complications Complications None Follow Up Care/Instructions Patient Instructions None needed. Anesthesia/Patient Condition Patient is doing well, no complaints, stable vital signs, no apparent adverse anesthesia problems. No complications reported per nursing. ALICE GUTIERREZ CRNA Sep 25, 2022 09:13
[2022-09-25] MEDS ORDERED: IBUPROFEN 800 MG (MOTRIN) TAB PO ONE ×2 (10:42→15:48)
[2022-09-25] MEDS: IBUPROFEN 800 MG (MOTRIN) TAB PO SCH ×3 (10:43→21:55)
[2022-09-25 10:45] VITALS: BP 112/56
--- NOTE | 2022-09-25 13:56 | OPERATIVE REPORT ---
DATE OF SERVICE: 09/24/2022 DELIVERY NOTE The patient delivered by a term spontaneous vaginal delivery of viable female with Apgars of 8 and 9 at 1 and 5 minutes respectively, weight of 7 pounds 3 ounces. time 2203 and a cord blood pH that is pending. The infant delivered over an intact perineum under epidural analgesia. was bulb suctioned on delivery of the head and again upon completion of delivery. The umbilical cord was doubly clamped and pulseless. The father cut the cord. The baby was passed to mom's abdomen. Placenta delivered spontaneously [place], it was normal with a 3-vessel cord. Cervix, vagina, rectum and perineum were examined and found intact. Sponge and needle counts were correct on completion of the procedure. Blood loss was around 200 mL. The patient tolerated the delivery well and remained in the LDR for recovery. The baby remained with mom. Job ID: [id number] DocumentID: [id number] Dictated Date: 09/25/2022 08:16:07 Transportation Consultant Date: 09/25/2022 13:54:00 Dictated By: ZOILA KENDRICK MD
[2022-09-25 15:52] VITALS: BP 121/56
[2022-09-25 21:55] VITALS: BP 112/60
[2022-09-26 04:11] VITALS: BP 119/69
[2022-09-26] MEDS: IBUPROFEN 800 MG (MOTRIN) TAB PO SCH ×2 (04:11→09:19)
[2022-09-26] MEDS: DOCUSATE SODIUM 100 MG (COLACE) CAP PO SCH (09:19)
--- NOTE | 2022-09-26 09:50 | Progress Note ---
Standard Progress Note Progress Notes/Assess & Plan Date Seen by a Provider: Sep 26, 2022 Time Seen by a Provider: 09:49 Progress/Assessment & Plan This patient is without complaint. She is ambulating, voiding, tolerating oral intake well and has good pain control. Vital Signs Date Time Temp Pulse Resp B/P (MAP) Pulse Ox O2 Delivery O2 Flow Rate FiO2 09/25/22 04:47 37.5 93 18 114/60 (78) 97 Room Air 09/24/22 23:25 37.0 97 18 119/66 (83) 100 Room Air 09/24/22 23:23 120 118/63 (81) Room Air 09/24/22 23:08 118 118/73 (88) Room Air 09/24/22 22:53 111 106/61 (76) Room Air 09/24/22 22:38 115 111/69 (83) Room Air 09/24/22 22:23 36.8 113 18 122/63 (82) Room Air 09/24/22 22:10 120 110/62 (78) Room Air 09/24/22 21:54 131 113/58 (76) Room Air 09/24/22 21:39 117 105/57 (73) Room Air 09/24/22 21:24 116 127/73 (91) 100 Room Air 09/24/22 21:10 121 126/68 (87) 100 Room Air 09/24/22 20:53 112 18 128/84 (99) 100 Room Air 09/24/22 20:24 114 111/62 (78) Room Air 09/24/22 20:10 124 111/65 (80) 98 Room Air 09/24/22 19:54 112 22 91/56 (68) 99 Room Air 09/24/22 19:38 120 20 95/61 (72) 100 Room Air 09/24/22 19:24 36.0 120 20 88/58 (68) 99 Room Air 09/24/22 19:09 135 95/58 (70) 99 Room Air 09/24/22 19:00 96 18 112/65 (81) 92 Room Air 09/24/22 18:45 122 18 116/68 (84) 100 Room Air 09/24/22 18:30 102 18 109/67 (81) 98 Room Air 09/24/22 18:15 100 18 107/68 (81) 98 Room Air 09/24/22 18:00 113 18 101/59 (73) 98 Room Air 09/24/22 17:45 109 18 113/68 (83) 98 Room Air 09/24/22 17:30 108 18 101/64 (76) 98 Room Air 09/24/22 17:15 97 18 99 Room Air 09/24/22 17:10 108 18 93/54 (67) 100 Room Air 09/24/22 17:00 113 18 100 Room Air 09/24/22 16:55 126 18 89/51 (64) 100 Room Air 09/24/22 16:45 134 18 100 Room Air 09/24/22 16:40 145 18 111/59 (76) 100 Room Air 09/24/22 16:30 134 18 100 Non Rebreather 10.00 09/24/22 16:20 125 18 96/51 (66) 100 Room Air 09/24/22 16:15 125 18 109/59 (76) 100 Room Air 09/24/22 16:11 125 18 110/55 (73) 100 Room Air 09/24/22 16:10 141 18 87/47 (60) 100 Room Air 09/24/22 16:08 143 18 103/58 (73) 100 Room Air 09/24/22 16:05 37.1 108 18 112/59 (76) 100 Room Air 09/24/22 16:00 122 18 98/55 (69) 100 Room Air 09/24/22 15:55 127 18 101/64 (76) 100 Room Air 09/24/22 15:50 131 18 116/70 (85) 100 Room Air 09/24/22 15:45 129 18 116/69 (85) 100 Room Air 09/24/22 15:40 122 18 119/87 (98) 100 Room Air 09/24/22 15:35 109 18 123/79 (94) 100 Room Air 09/24/22 13:02 36.7 111 18 117/66 100 Room Air 09/24/22 12:56 36.7 111 18 100 Room Air I & O 09/25/22 07:00 Intake Total 2155 ml Output Total 950 ml Balance 1205 ml Vital signs are stable. Patient is afebrile. The abdomen is benign. Fundus is firm below the umbilicus and nontender. Extremities show no clubbing or cyanosis. There is no Homans' sign. Assessment and plan day #1 status post term spontaneous vaginal livery doing well. Plans for routine convalescent care September 26, 2022 This patient is without complaint. She is ambulating, voiding, tolerating oral intake and has good pain control. She is requesting discharge home. Vital Signs Date Time Temp Pulse Resp B/P (MAP) Pulse Ox O2 Delivery O2 Flow Rate FiO2 09/26/22 04:11 36.3 76 18 119/69 (86) 99 Room Air 09/25/22 21:55 36.2 88 18 112/60 (77) 98 Room Air 09/25/22 15:52 36.6 79 18 121/56 (77) 100 Room Air 09/25/22 10:45 36.5 104 18 112/56 (74) 98 Room Air Vital signs are stable. Patient is afebrile. The abdomen is benign. The fundus is firm below the umbilicus and nontender. Extremities show no clubbing or cyanosis. There is no Homans' sign. Pelvic exam is deferred Assessment and plan day #2 status post term spontaneous vaginal livery at 37 weeks gestation patient is doing well and will be discharged home Final Diagnosis 37-week spontaneous vaginal delivery ZOILA KENDRICK MD Sep 26, 2022 09:50
== END 2022-09-26 10:05 | disposition home or self-care (01) | DRG 807 ==
LOC: WSo 12:48 → LDRP 12:48 → WSo 13:34 → LDRP 13:35 → WS 14:57 → LDRP 23:35
PROVIDERS: ADMIT Obstetrics & Gynecology; ATTEND Obstetrics & Gynecology
PROC: 10E0XZZ Delivery of Products of Conception, External Approach (ICD-10-PCS; principal; 2022-09-24)
DX: O99.02 Anemia complicating childbirth (principal); Z37.0 Single live birth; D64.9 Anemia, unspecified; Z3A.37 37 weeks gestation of pregnancy
CPT/HCPCS: 36415; 85025; 86780; 86850; 86900; 86901